=== PATIENT | female | born 1965 | race Caucasian/White ===

== ENCOUNTER 2016-05-28 12:29 | Emergency (ER) | payer OTHER ==
[2016-05-28 13:51] LABS: BASO # 0.1 10_X3_uL (0.0-0.1); BASO % 1.5 % (0.1-1.2); EOS # 0.2 10_X3_uL (0.0-0.4); EOS % 2.2 % (0.7-5.8); GRAN # 3.7 10_X3_uL (1.6-6.1); GRAN % 42.6 % (34.0-71.1); HEMATOCRIT 40.5 % (34-45); LYMPH % 45.5 % (19.3-51.7); MEAN CORPUSCULAR HEMOGLOBIN 29.7 pg (27.0-33.0); MEAN CORPUSCULAR HGB CONC 32.1 g/dL (32.0-36.0); MEAN CORPUSCULAR VOLUME 92.5 fL (79-95); MEAN PLATELET VOLUME 10.6 fl (7.5-11.5); MONO # 0.7 10_X3_uL (0.2-0.9); MONO % 8.2 % (4.7-12.5); PLATELET COUNT 238 x10_3/uL (182-369); RED BLOOD COUNT 4.38 x10_6/uL (3.9-5.2); RED CELL DISTRIBUTION WIDTH 16.1 % (11.7-14.4); WHITE BLOOD COUNT 8.7 x10_3/uL (4.0-10.0)
== END 2016-05-28 15:25 | disposition home or self-care (01) ==
LOC: ER 12:29
PROVIDERS: General Practice
DX: M51.36 Other intervertebral disc degeneration, lumbar region (principal); M48.06 Spinal stenosis, lumbar region; G89.29 Other chronic pain; M54.5 Low back pain; F17.210 Nicotine dependence, cigarettes, uncomplicated; Z79.899 Other long term (current) drug therapy; Z88.5 Allergy status to narcotic agent; Z88.6 Allergy status to analgesic agent
CPT/HCPCS: 36415; 72128; 72131; 85025; 96372; 99283; 99283-25

== ENCOUNTER 2016-06-25 11:06 | Emergency (ER) | payer OTHER | END 2016-06-25 14:36 | disposition other institution (70) | LOC: ER 11:06 | DX: N39.0 Urinary tract infection, site not specified (principal); R31.9 Hematuria, unspecified; R10.11 Right upper quadrant pain; R30.0 Dysuria; R74.8 Abnormal levels of other serum enzymes; Z88.5 Allergy status to narcotic agent; Z88.6 Allergy status to analgesic agent ==